=== PATIENT | female | born 1940 ===

== ENCOUNTER 2018-05-30 13:15 | Emergency (ER) | payer OTHER ==
[~2018-05-30] VITALS: Ht 170.2 cm; Wt 98.4 kg
[2018-05-30] MEDS ORDERED: AMIODARONE150 MG/101 (13:44)
[2018-05-30] MEDS ORDERED: ELIQUIS2.5 MG (13:44)
[2018-05-30] MEDS ORDERED: COREG CR10 MG (13:45)
[2018-05-30] MEDS ORDERED: ENTRESTO 24 MG1 EACH (13:45)
[2018-05-30] MEDS ORDERED: FORTAMET500 MG (13:45)
[2018-05-30] MEDS ORDERED: CRESTOR5 MG (13:45)
== END 2018-05-30 16:48 | disposition home or self-care (01) ==
LOC: ER 13:15
DX: R10.32 Left lower quadrant pain (principal); R31.0 Gross hematuria